=== PATIENT | female | born 1990 | race Caucasian/White ===

== ENCOUNTER 2020-01-24 14:45 | Inpatient (IN) | payer MEDICARE, MEDICAID ==
[2020-01-24 16:48] LABS: Amphetamine Screen,Urine Not Detected (NotDetected); Benzodiazepines Screen,Urine Detected (NotDetected); Cocaine Screen,Urine Not Detected (NotDetected); Opiate Screen,Urine Not Detected (NotDetected); Phencyclidine Screen,Urine Not Detected (NotDetected); Urn Cannabinoid Scrn Not Detected (NotDetected)
[2020-01-24 16:49] LABS: Barbiturate Screen,Urine Not Detected (NotDetected); Methadone Screen, Urine Not Detected (NotDetected); Oxycodone Screen, Urine Not Detected (NotDetected); Tricyclic Antidepressant,Urine Not Detected (NotDetected)
--- NOTE | 2020-01-24 19:04 | ED ---
General Adult HPI - General Chief complaint: Psychiatric Symptoms Stated complaint: Mental Health Time Seen by Provider: 01/24/20 15:29 Source: patient, family Limitations: no limitations - History of Present Illness Initial comments: 29-year-old female patient with past medical history significant for schizophrenia presents to the emergency department today for evaluation of vi sual and auditory hallucinations as well as suicidal ideation. Patient is difficult to provide a timeline however her sister states that she called her this morning and informed her that she was feeling like she wanted to kill herself. Patient states she did get a knife wanted to stab herself. Patient does take medications and is seen by [facility] and [place]. States that she has been taking her medications as prescribed and going to her appointments. Her sister says is been quite some time since she has had symptoms like this. She denies alcohol or drug use. States she is having difficulty sleeping She denies any current physical symptoms or concerns. Patient denies any recent rash, fever, chills, cough, shortness of breath, chest pain, abdominal pain, nausea, vomiting, diarrhea, constipation, back pain, numbness, tingling, dizziness, weakness, hematuria, dysuria, urinary urgency, urinary frequency, headache, visual changes, or any other complaints. - Related Data Home Medications Medication Instructions Recorded Confirmed ARIPiprazole IM SYRINGE [Abilify 400 mg IM Q28D 01/24/20 01/24/20 Maintena Syringe] Cetirizine HCl [Zyrtec] 10 mg PO DAILY 01/24/20 01/24/20 LORazepam [Ativan] 1 mg PO BID 01/24/20 01/24/20 Medroxyprogesterone Acetate 150 mg IM Q84D 01/24/20 01/24/20 [Depo-Provera] Melatonin 5 mg PO HS 01/24/20 01/24/20 Allergies Allergy/AdvReac Type Severity Reaction Status Date / Time lactose AdvReac Nausea & Verified 01/24/20 17:11 Vomiting & Diarrhea Review of Systems ROS Statement: Those systems with pertinent positive or pertinent negative responses have been documented in the HPI. ROS Other: All systems not noted in ROS Statement are negative. Past Medical History Past Medical History: No Reported History History of Any Multi-Drug Resistant Organisms: None Reported Past Surgical History: No Surgical Hx Reported Past Psychological History: No Psychological Hx Reported Past Alcohol Use History: None Reported Past Drug Use History: None Reported - Past Family History Mother Additional Family Medical History / Comment(s): Schizophrenia, bipolar D/O, personality disorder Father Additional Family Medical History / Comment(s): Patient does not have any contact with her father. Brother(s) Additional Family Medical History / Comment(s): Patient has 1 brother and 1 sister with no major medical problems. General Exam Limitations: no limitations General appearance: alert, in no apparent distress, other (This is a well- developed, well-nourished adult female patient in no acute distress. Vital signs upon presentation are temperature 97.8F, pulse 65, respirations 18, blood pressure 123/88, pulse ox 100% on room air.) Eye exam: Present: normal appearance, PERRL, EOMI. Absent: scleral icterus, conjunctival injection, periorbital swelling ENT exam: Present: normal exam, normal oropharynx, mucous membranes moist Cardiovascular Exam: Present: regular rate, normal rhythm, normal heart sounds. Absent: systolic murmur, diastolic murmur, rubs, gallop, clicks GI/Abdominal exam: Present: soft, normal bowel sounds. Absent: distended, tenderness, guarding, rebound, rigid Neurological exam: Present: alert, oriented X3, CN II-XII intact Psychiatric exam: Present: depressed, flat affect, suicidal ideation. Absent: homicidal ideation Skin exam: Present: warm, dry, intact, normal color. Absent: rash Course Vital Signs 01/24/20 14:58 Temperature 97.8 F Pulse Rate 65 Respiratory 18 Rate Blood Pressure 123/88 O2 Sat by Pulse 100 Oximetry Medical Decision Making - Medical Decision Making 29-year-old female patient presents to the emergency department today for evaluation of hallucinations and suicidal ideation. Patient does have history of schizophrenia. She was cleared medically and evaluated by emergency psychiat rito services. It was determined the patient would benefit from inpatient admission, she'll be transferred to the mental health unit. She is agreeable and signs in. - Lab Data Lab Results 01/24/20 Range/Units 16:20 Urine Opiates Screen Not Detected (NotDetected) Ur Oxycodone Screen Not Detected (NotDetected) Urine Methadone Screen Not Detected (NotDetected) Ur Propoxyphene Screen Not Detected (NotDetected) Ur Barbiturates Screen Not Detected (NotDetected) U Tricyclic Antidepress Not Detected (NotDetected) Ur Phencyclidine Scrn Not Detected (NotDetected) Ur Amphetamines Screen Not Detected (NotDetected) U Methamphetamines Scrn Not Detected (NotDetected) U Benzodiazepines Scrn Detected H (NotDetected) Urine Cocaine Screen Not Detected (NotDetected) U Marijuana (THC) Screen Not Detected (NotDetected) Disposition Clinical Impression: Suicidal ideation, Hallucinations Disposition: TRANSFER TO PSYCH HOSP/UNIT Condition: Serious Referrals: Evangelist Martinez MD [Primary Care Provider] - 1-2 days - Out of Hospital Transfer - Req. Specs Out of Hospital Transfer - Requested Specifics: Psychiatric Non-ICU ([facility])
[2020-01-25] MEDS ORDERED: MAG HYDROX/AL HYDROX/SIMETH 30 ML CUP PO PRN (00:41)
[2020-01-25] MEDS ORDERED: LORazepam 1 MG TAB PO PRN (00:41)
[2020-01-25] MEDS ORDERED: MAGNESIUM HYDROXIDE 2,400 MG/10 ML CUP PO PRN (00:41)
[2020-01-25] MEDS ORDERED: ZIPRASIDONE 20 MG VIAL IM PRN (00:41)
[2020-01-25] MEDS ORDERED: LORazepam 2 MG/ML INJ IM PRN (00:43)
[2020-01-25] MEDS: ACETAMINOPHEN TAB 325 MG TAB PO PRN (01:09)
[2020-01-25] MEDS ORDERED: LORATADINE 10 MG TAB PO SCH (09:00)
--- NOTE | 2020-01-25 11:46 | P.HP ---
Psychiatric H&P - . H&P Date: 01/25/20 History & Physical: Allergies Allergy/AdvReac Type Severity Reaction Status Date / Time lactose AdvReac Nausea & Verified 01/25/20 02:38 Vomiting & Diarrhea Vital Signs Temp 99.1 F 01/25/20 00:51 Pulse 59 L 01/25/20 00:51 Resp 15 01/25/20 00:51 BP 147/94 01/25/20 00:51 Pulse Ox 100 01/25/20 00:51 Intake & Output 01/24/20 01/25/20 01/25/20 18:59 06:59 18:59 Weight 74.843 kg 73.709 kg Laboratory Last Values Urine HCG, Qual Not Detected (Not Detectd) 01/24/20 16:20 Urine Opiates Screen Not Detected (NotDetected) 01/24/20 16:20 Ur Oxycodone Screen Not Detected (NotDetected) 01/24/20 16:20 Urine Methadone Screen Not Detected (NotDetected) 01/24/20 16:20 Ur Propoxyphene Screen Not Detected (NotDetected) 01/24/20 16:20 Ur Barbiturates Screen Not Detected (NotDetected) 01/24/20 16:20 U Tricyclic Antidepress Not Detected (NotDetected) 01/24/20 16:20 Ur Phencyclidine Scrn Not Detected (NotDetected) 01/24/20 16:20 Ur Amphetamines Screen Not Detected (NotDetected) 01/24/20 16:20 U Methamphetamines Scrn Not Detected (NotDetected) 01/24/20 16:20 U Benzodiazepines Scrn Detected (NotDetected) H 01/24/20 16:20 Urine Cocaine Screen Not Detected (NotDetected) 01/24/20 16:20 U Marijuana (THC) Screen Not Detected (NotDetected) 01/24/20 16:20 01/25/20 10:22 IDENTIFYING DATA: Patient is a 29-year-old female with a history of schizophrenia who currently lives in a usp collects Social Security has no kids and is unmarried. HPI: Patient presented to the hospital yesterday and was brought in by her [id number] after patient apparently was having auditory hallucinations and suicidal thoughts. Patient has a history of schizophrenia and apparently called her mother according to ER report to tell her about her suicidal thoughts about grabbing a knife and stabbing herself. Patient admitted to ER staff that she has been taking her medications and has had poor sleep. Patient's UDS is positive for benzodiazepines. Patient was seen on the mental health unit laying in her bed and was directable and agreeable to speak to magazine writer in the office. Patient appeared to have a bizarre and intense stare and was concrete and had poverty of content in her speech. She was attending be appropriate and was calm with magazine writer. She denied any irritability however did state that she had been feeling mildly depressed recently. She states that she was hearing more voices which were "negative to me" and the voice yesterday told her to grab a knife and stab herself. She states that the voices have commanded her in the past to kill herself. She claims that the voices have been chronic for her. She states that she called her [id number] to take her to the hospital. She states that she follows up at the [facility] with Dr. Verdugo and has been on an Abilify Maintenna injection. She states that her sleep is poor. Patient denies any current suicidal or homicidal ideations intent or plan. Patient denies any flight of ideas racing thoughts and increased in goal directed behavior. Patient admits to using no recreational drugs or cigarettes or alcohol. PAST PSYCHIATRIC HISTORY: Patient states that she has a history of schizophrenia. Patient was previously on Ativan 1 mg twice a day and Abilify Maintenna monthly injection. Patient was previously hospitalized on the mental health unit in July 2015. In follows up with [facility] in [place], Dr. Verdugo. Patient denies any history of suicide attempts in the past. PMH:denies ALLERGIES: as per EMR CHEMICAL DEPENDENCY HISTORY: as per HPI FAMILY PSYCHIATRIC/SUBSTANCE USE HISTORY: denies SOCIAL HISTORY: Patient was born and raised in [place] however moved to [place]. She currently lives in a usp and collects Social Security has no kids and is unmarried. She claims that she completed high school and worked odd jobs in the past. She is currently unemployed. She denied any legal problems or incarcerations. MENTAL STATUS EXAM: General Appearance: Patient appears to be stated age is alert, directable, and attempts to cooperate. Has a bizarre and intense stare. Patient appears to have poor hygiene and grooming. Behavior: Patient is seated without any agitated behavior. [place] and bizarre. Speech: Patient's speech is fluent and nonpressured. Monotone and concrete. Mood/Affect: Patient reports their mood is depressed, affect is congruent and constricted. Suicidality/Homicidality: Patient denies having any homicidal ideation intent or plan. Denies any suicidal ideations intent or plan Perceptions: Patient denies any visual hallucinations and admits to ongoing auditory hallucinations Though content/process: There is no evidence of any delusional thought content. Patient is concrete and has poverty of content. Memory and concentration: AOX3, grossly intact for the purposes of this session. Can spell "WORLD" backwards Judgment and insight: Limited STRENGTHS/WEAKNESSES: strength is that patient is resilient. Weakness is that patient has poor judgment and is impulsive INTELLECT: Below average IMPRESSIONS: Schizophrenia PLAN: -Patient is admitted under voluntary status to MHU for stabilization of psychiatric symptoms and safety. Patient signed adult voluntary form and medication consent and is placed in patient's chart. -Medications : Will start patient on paliperidone by mouth 3 mg daily for mood stabilization/psychosis with plan to titrate up. Patient claims that she prefe rs to be on a long-acting injection and would likely transition patient onto Invega Sustenna as it appears that Gabriela Huang is not adequately controlling her symptoms. Will increase melatonin to 10 mg nightly for insomnia. -Ativan and Geodon PRN for agitation/aggression -Patient was informed of the risks, benefits and side effects of the medication and patient verbally consented to taking the medications. Patient signed med consent form and was placed in chart. -Internal Medicine consult to perform medical evaluation and physical. -NRT -not needed as patient does not smoke. - on board for discharge planning. Encourage patient to participate in groups to work on coping skills. We'll need to coordinate care with [facility] prior to discharge. Patient will be likely returning back to her usp once she is psychiatrically stable. 01/25/20 11:39
[2020-01-25] MEDS: PALIPERIDONE 3 MG TAB.ER.24 PO SCH (13:29)
--- NOTE | 2020-01-25 13:53 | P.CONS ---
History of Present Illness - Reason for Consult Consult date: 01/25/20 Medical management Requesting physician: Calvin Kelley - Chief Complaint Hallucinations - History of Present Illness Consultation: This is a 29-year-old patient lives in a snf. Patient is brought in by a [id number] after the patient been having auditory hallucinations and suicidal thoughts. Patient has a history of schizophrenia. Apparently patient been havi ng thoughts of driving and-stabbing herself. She has not been sleeping well. During interview she will oftentimes just look at me and answer questions. Voices have been talking to her to harm herself. Her appetite is okay. She has some irregularity of the bowels. She is not able to tell me more about the same just keeps quite. Patient does not use any dictation drugs. Review of systems: GEN.: Tired EYES: None HEENT: None NECK: None RESPIRATORY: None CARDIOVASCULAR: None GASTROINTESTINAL: None GENITOURINARY: None MUSCULOSKELETAL: None LYMPHATICS: None HEMATOLOGICAL: None PSYCHIATRY: As above NEUROLOGICAL: None Past medical history to include: Schizophrenia Social history: Denies use of any dictation drugs, smoking, or alcohol. Lives in a snf. Family history: Reviewed, noncontributory to presentation Physical examination: VITAL SIGNS: 99.1, 59, 15, 1 4794, 100% room air GENERAL: BMI 28.8, sitting up in a chair, depressed appearing. EYES: Pupils equal. Conjunctiva normal. HEENT: External appearance of nose and ears normal, oral cavity grossly normal. NECK: JVD not raised; masses not palpable. HEART: First and second heart sounds are normal; no edema. LUNGS: Respiratory rate normal; clear to auscultation. ABDOMEN: Soft, nontender, liver spleen not palpable, no masses palpable. PSYCH: Patient's awake though, has more of a blank expressionless facel. NEUROLOGICAL: Cranial nerves grossly intact; no facial asymmetry, power and sensation grossly intact. 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 Plan: This point to discontinue patient's Zyrtec that she takes at home. That may be interfering with some of other medications. We will use Metamucil for her bowels. In a high-fiber diet. She'll follow-up with the family doctor per discharge. Thank you Dr. Kelley Past Medical History Past Medical History: No Reported History History of Any Multi-Drug Resistant Organisms: None Reported Past Surgical History: No Surgical Hx Reported Smoking Status: Never smoker - Past Family History Mother Additional Family Medical History / Comment(s): Schizophrenia, bipolar D/O, personality disorder Father Additional Family Medical History / Comment(s): Patient does not have any contact with her father. Brother(s) Additional Family Medical History / Comment(s): Patient has 1 brother and 1 sister with no major medical problems. Medications and Allergies Home Medications Medication Instructions Recorded Confirmed Type ARIPiprazole IM SYRINGE [Abilify 400 mg IM Q28D 01/24/20 01/25/20 History Maintena Syringe] Cetirizine HCl [Zyrtec] 10 mg PO DAILY 01/24/20 01/25/20 History LORazepam [Ativan] 1 mg PO BID 01/24/20 01/25/20 History Medroxyprogesterone Acetate 150 mg IM Q84D 01/24/20 01/25/20 History [Depo-Provera] Melatonin 5 mg PO HS 01/24/20 01/25/20 History Allergies Allergy/AdvReac Type Severity Reaction Status Date / Time lactose AdvReac Nausea & Verified 01/25/20 02:38 Vomiting & Diarrhea Physical Exam Vitals: Vital Signs Temp Pulse Pulse Resp BP BP Pulse Ox 01/25/20 00:51 99.1 F 59 L 15 147/94 100 01/24/20 14:58 97.8 F 65 18 123/88 100 Intake and Output 01/24/20 01/25/20 01/25/20 22:59 06:59 14:59 Other: Weight 73.709 kg Results Labs: Abnormal Lab Results - Last 24 Hours (Table) 01/24/20 Range/Units 16:20 U Benzodiazepines Scrn Detected H (NotDetected)
[2020-01-25] MEDS: PSYLLIUM HUSK 100% 6 GM PACKET PO SCH (14:25)
[2020-01-25] MEDS ORDERED: MELATONIN 5 MG TABLET PO SCH (21:00)
[2020-01-25] MEDS: MELATONIN 5 MG TABLET PO SCH (22:17)
[2020-01-26] MEDS: PSYLLIUM HUSK 100% 6 GM PACKET PO SCH (08:21)
[2020-01-26] MEDS: PALIPERIDONE 3 MG TAB.ER.24 PO SCH ×2 (08:21→21:23)
[2020-01-26 09:27] LABS: Basophils # (A) 0.1 k/uL (0-0.2); Basophils % (A) 1 %; Eosinophils # (A) 0.1 k/uL (0-0.7); Eosinophils % (A) 1 %; HCT 46.9 % (34.0-46.0); HGB 14.7 gm/dL (11.4-16.0); Lymphocytes # (A) 4.3 k/uL (1.0-4.8); Lymphocytes % (A) 32 %; MCH 27.7 pg (25.0-35.0); MCHC 31.3 g/dL (31.0-37.0); MCV 88.5 fL (80.0-100.0); Mean Platelet Volume 7.2; Monocytes # (A) 0.6 k/uL (0-1.0); Monocytes % (A) 5 %; Neutrophils # (A) 7.9 k/uL (1.3-7.7); Neutrophils % (A) 60 %; Platelet Count 304 k/uL (150-450); RDW 13.4 % (11.5-15.5); WBC 13.1 k/uL (3.8-10.6)
[2020-01-26 09:46] LABS: Cholesterol 168 mg/dL (<200); HDL Cholesterol 35 mg/dL (40-60); LDL Cholesterol,Calculated 105 mg/dL (0-99); Triglycerides 139 mg/dL (<150)
[2020-01-26 09:58] LABS: ALT 20 U/L (4-34); AST 23 U/L (14-36); African American GFR (CKD) >90 (>60 ml/min/1.73 sqM); Albumin 4.7 g/dL (3.5-5.0); Alkaline Phosphatase 93 U/L (38-126); Anion Gap 8 mmol/L; Blood Urea Nitrogen 12 mg/dL (7-17); Calcium 9.9 mg/dL (8.4-10.2); Carbon Dioxide 26 mmol/L (22-30); Chloride 106 mmol/L (98-107); Glucose 90 mg/dL (74-99); Non-African American GFR(CKD) >90 (>60 ml/min/1.73 sqM); Potassium 4.4 mmol/L (3.5-5.1); Sodium 140 mmol/L (137-145); Total Bilirubin 0.8 mg/dL (0.2-1.3); Total Protein 7.5 g/dL (6.3-8.2)
--- NOTE | 2020-01-26 10:18 | P.PN ---
Progress Note - Text Progress Note Date: 01/26/20 Interval History: Patient was seen in her room today and was directable and agreeable to speak w ith advertising copywriter in the office. Patient continues to appear to be concrete and has an intense stare. She was attempting to cooperate and was calm during the interview. She states that she is feeling a bit better today and claims that she was able to get better sleep last night "I slept like a baby". She states that she did go to 1 group yesterday and spoke about rolling a dice and answering questions. She states that the voices have been improving and "they're not negative anymore" however apparently are still present. She claims that she her mood has been gradually improving and denies any anxiety today. She states that she will be calling her family today in the afternoon. At this time patient denies any suicidal or homical ideations, intent or plan. Patient denies visual hallucinations and denies any paranoia or delusions. Patient denies any side effects from the medications and has been compliant with meds. Mental Status Exam: General Appearance: Patient appears to be stated age is alert, directable, and attempts to cooperate. Has an intense stare. Patient appears to have improving hygiene and grooming. Behavior: Patient is seated without any agitated behavior. [place] Speech: Patient's speech is fluent and nonpressured. Monotone Mood/Affect: Patient reports their mood is "getting better", affect is congruent and constricted. Suicidality/Homicidality: Patient denies having any homicidal ideation intent or plan. Denies any suicidal ideations intent or plan Perceptions: Patient denies any visual hallucinations and admits to ongoing auditory hallucinations which have been improving in intensity. Though content/process: There is no evidence of any delusional thought content. Patient is concrete and has poverty of content. Memory and concentration: AOX3, grossly intact for the purposes of this session. Judgment and insight: Limited, improving mildly Assessment Schizophrenia Plan: -Patient continues to meet criteria for inpatient psychiatric admission for symptom stabilization and safety. Patient has signed adult voluntary form and medication consent and was placed in patient's chart. -Medications: We'll increase paliperidone to 3 mg twice a day for mood stabilization/psychosis. Plan will be to transition her onto long-acting injection Invega Sustenna once she is stabilized. We will continue with melatonin 10 mg nightly for insomnia. -When necessary Ativan and Geodon for agitation/aggression. -NRT -not needed as patient does not smoke. -SW on board for discharge planning. Encouraged the patient to participate in milieu. We'll need to coordinate care with [facility] prior to discharge. Patient will be likely returning back to her halfway once she is psychiatrically stable.
[2020-01-26] MEDS: ACETAMINOPHEN TAB 325 MG TAB PO PRN (13:51)
[2020-01-26 17:07] LABS: Hemoglobin A1C 5.4 % (4.0-6.0)
[2020-01-26] MEDS: MELATONIN 5 MG TABLET PO SCH (21:24)
[2020-01-27] MEDS: PSYLLIUM HUSK 100% 6 GM PACKET PO SCH (08:35)
[2020-01-27] MEDS: PALIPERIDONE 3 MG TAB.ER.24 PO SCH (08:35)
[2020-01-27] MEDS ORDERED: BENZTROPINE MESYLATE 0.5 MG TAB PO SCH (09:15)
[2020-01-27] MEDS: BENZTROPINE MESYLATE 1 MG TAB PO SCH ×2 (09:15→20:33)
--- NOTE | 2020-01-27 09:36 | P.PN ---
Progress Note - Text Progress Note Date: 01/27/20 Interval History: Patient was seen in her room today and was directable and agreeable to speak w ith contract writer in the office. Patient appeared to be having difficulties moving her eyes this morning and states that "sometimes they locked" and states that her mood is "fine" today. She denied any depression. She claimed that she feels she is doing well on the medications. Patient continues to appear to be concrete and has an intense stare. She claims that she was hearing voices earlier today calling her a "bitch" and states that "I want to slap them". She states that she did not sleep as good as the day before however did manage to get some rest at night. She claims that she did not go to many groups yesterday and has been in her room for most of the time. She claims that she her mood has been gradually improving and denies any anxiety today. She states that she will be calling her family today in the afternoon. At this time patient denies any suicidal or homical ideations, intent or plan. Patient denies visual hallucinations and denies any paranoia or delusions. Patient denies any side effects from the medications and has been compliant with meds. Mental Status Exam: General Appearance: Patient appears to be stated age is alert, directable, and attempts to cooperate. Has an intense stare. Patient appears to have improving hygiene and grooming. Behavior: Patient is seated without any agitated behavior. [place] Speech: Patient's speech is fluent and nonpressured. Monotone Mood/Affect: Patient reports their mood is "ok", affect is congruent and constricted. Suicidality/Homicidality: Patient denies having any homicidal ideation intent or plan. Denies any suicidal ideations intent or plan Perceptions: Patient denies any visual hallucinations and admits to ongoing auditory hallucinations which are calling her a "bitch" Though content/process: There is no evidence of any delusional thought content. Patient is concrete and has poverty of content. Memory and concentration: AOX3, grossly intact for the purposes of this session. Judgment and insight: Limited, improving mildly Assessment Schizophrenia Plan: -Patient continues to meet criteria for inpatient psychiatric admission for symptom stabilization and safety. Patient has signed adult voluntary form and medication consent and was placed in patient's chart. -Medications: We'll decrease paliperidone to 3 mg daily for mood stabilization/psychosis. Plan will be to transition her onto long-acting injection Invega Sustenna once she is stabilized. We will continue with melatonin 10 mg nightly for insomnia. Suspected possible EPS reaction from paliperidone, therefore added Cogentin 1 mg twice a day with 1 dose now and will check in with patient in one hour to see if there is any improvement. -When necessary Ativan and Geodon for agitation/aggression. -NRT -not needed as patient does not smoke. -SW on board for discharge planning. Encouraged the patient to participate in milieu. We'll need to coordinate care with [facility] prior to discharge. Patient will be likely returning back to her custodial once she is psychiatrically stable.
[2020-01-27] MEDS: MELATONIN 5 MG TABLET PO SCH (20:32)
[2020-01-28] MEDS: PSYLLIUM HUSK 100% 6 GM PACKET PO SCH (08:33)
[2020-01-28] MEDS: BENZTROPINE MESYLATE 1 MG TAB PO SCH ×2 (08:35→21:04)
[2020-01-28] MEDS ORDERED: PALIPERIDONE 3 MG TAB.ER.24 PO SCH (09:00)
[2020-01-28] MEDS ORDERED: PALIPERIDONE 3 MG TAB.ER.24 PO STA (11:24)
--- NOTE | 2020-01-28 11:40 | P.PN ---
Progress Note - Text Progress Note Date: 01/28/20 Interval History: Patient was seen in her room today and she was sitting on the edge of the bed quietly and was directable and agreeable to speak with conventional underwriter in the office. Patient states that she is feeling mildly better today and claims that she feels the medications of been helping her. She denied any overnight complaints and states that her "eye twitching" has resolved with the Cogentin. She claimed that her mood is "not the same" and spoke about a "negative voice" that is telling her "some bad things and some good things". She claimed that she feels she is doing well on the medications and is agreeable to have the medication increased at this time. Patient continues to appear to be concrete and has an intense stare. Patient states that she has been showering eating her meals and will attempt to go to groups today. She claims that she her mood has been gradually improving and denies any anxiety today. At this time patient denies any suicidal or homical ideations, intent or plan. Patient denies visual hallucinations and denies any paranoia or delusions. Patient denies any side effects from the medications and has been compliant with meds. Mental Status Exam: General Appearance: Patient appears to be stated age is alert, directable, and attempts to cooperate. Has an intense stare. Patient appears to have improving hygiene and grooming. Behavior: Patient is seated without any agitated behavior. [place] Speech: Patient's speech is fluent and nonpressured. Monotone Mood/Affect: Patient reports their mood is "not the same", affect is congruent and blunted. Suicidality/Homicidality: Patient denies having any homicidal ideation intent or plan. Denies any suicidal ideations intent or plan Perceptions: Patient denies any visual hallucinations and admits to ongoing auditory hallucinations which are continuing to be negative in nature. Though content/process: There is no evidence of any delusional thought content. Patient is concrete and has poverty of content. Memory and concentration: AOX3, grossly intact for the purposes of this session. Judgment and insight: Limited, improving mildly Assessment Schizophrenia Plan: -Patient continues to meet criteria for inpatient psychiatric admission for symptom stabilization and safety. Patient has signed adult voluntary form and medication consent and was placed in patient's chart. -Medications: We'll increase paliperidone to 6 mg daily for mood stabilization/psychosis. Plan will be to transition her onto long-acting injection Invega Sustenna once she is stabilized. We will continue with melatonin 10 mg nightly for insomnia. Suspected possible EPS reaction from paliperidone, continue with Cogentin 1 mg twice a day. -When necessary Ativan and Geodon for agitation/aggression. -NRT -not needed as patient does not smoke. -SW on board for discharge planning. Encouraged the patient to participate in milieu. We'll need to coordinate care with [facility] prior to discharge. Patient will be likely returning back to her [facility] once she is psychiatrically stable. Likely discharge next week.
[2020-01-28] MEDS: MELATONIN 5 MG TABLET PO SCH (21:04)
[2020-01-29] MEDS: BENZTROPINE MESYLATE 1 MG TAB PO SCH ×2 (08:25→20:51)
[2020-01-29] MEDS: PALIPERIDONE 6 MG TAB.ER.24 PO SCH (08:25)
[2020-01-29] MEDS: PSYLLIUM HUSK 100% 6 GM PACKET PO SCH (08:26)
[2020-01-29] MEDS: MELATONIN 5 MG TABLET PO SCH (20:50)
--- NOTE | 2020-01-29 21:26 | P.PN ---
Progress Note - Text Progress Note Date: 01/29/20 Subjective: Patient was seen today as a cross coverage for Dr. Kelley. The patient was evaluated, chart reviewed, case discussed with the treatment team. Patient reports fair sleep, and appetite was reported as "good". Patient has not been going to groups and other unit activities. The patient is compliant with her medications and denies any adverse reactions. She minimizes depression today and denies felling hopeless or suicidal. Pt presents internally preoccupied with flat affect. She reports AH but she is not responding to the voices. Denies any manic symptoms. No physical complaint and reports medications helped her symptoms. Objective: Vitals has been reviewed. Mental status examination; Appearance: The patient appears stated age, adequately groomed and dressed, no specific features. Gait/posture: Normal gait, Normal arm swinging: No abnormal movements. Attitude and behavior: not engaged, not fully cooperative, poor eye contact. Motor activity: decreased psychomotor activity Speech: Slow rate, soft volume. Mood: indifferent Affect: Flat Thought form: Delayed, decreased thoughts. Thought content: Internally preoccupied, denies suicidal thoughts, denies homicidal thoughts, denies intentions or plans. Perception: Reports infrequent auditory but denies visual hallucinations Attention: No impairment. Orientation: Patient patient was fully oriented to time place person and situation. Insight: Patient has fair insight about her psychiatric disorder. Judgment: Patient has fair judgment about her psychiatric treatment. Assessment: Schizophrenia Plan: Continue inpatient level of care due to need for further stabilization Precautions: Continue 15 minutes check for safety. Consider medical consultation if any acute medical issues arise. Provide the patient individual, group therapy, substance use disorder counseling to give better insight and learn coping skills. Medications: Continue Invega for psychotic symptoms, and Cogentin to prevent EPS. Continue PRN psych medications Continue non-psychiatric medications for management of co-morbid medical problems Discharge patient to OUTPATIENT services upon a stabilization
[2020-01-30] MEDS: PALIPERIDONE 6 MG TAB.ER.24 PO SCH (08:28)
[2020-01-30] MEDS: BENZTROPINE MESYLATE 1 MG TAB PO SCH ×2 (08:28→20:43)
[2020-01-30] MEDS: PSYLLIUM HUSK 100% 6 GM PACKET PO SCH (08:28)
--- NOTE | 2020-01-30 12:24 | P.PN ---
Progress Note - Text Progress Note Date: 01/30/20 Subjective: Patient was seen today as a cross coverage for Dr. Kelley. The patient was evaluated, chart reviewed, case discussed with the treatment team. Patient reports continued to have good sleep and appetite, but presents with flat affect. Patient was more interacting today with others and she was seen attending groups. She denies depression, hopelessness, or suicidal. Reports continued to have auditory hallucinations but telling her to go to groups. She denies any commanding hallucinations to hurt herself or others. No manic symptoms reported or noticed. She denies any physical complaint, and continue to take her psychiatric medications without side effects. Objective: Vitals has been reviewed. Mental status examination; Appearance: The patient appears stated age, adequately groomed and dressed, no specific features. Gait/posture: Normal gait, Normal arm swinging: No abnormal movements. Attitude and behavior: not engaged, not fully cooperative, poor eye contact. Motor activity: decreased psychomotor activity Speech: Slow rate, soft volume. Mood: indifferent Affect: Flat Thought form: Delayed, decreased thoughts. Thought content: Internally preoccupied, denies suicidal thoughts, denies homicidal thoughts, denies intentions or plans. Perception: Reports infrequent auditory but denies visual hallucinations Attention: No impairment. Orientation: Patient patient was fully oriented to time place person and situation. Insight: Patient has fair insight about her psychiatric disorder. Judgment: Patient has fair judgment about her psychiatric treatment. Assessment: Schizophrenia Plan: Continue inpatient level of care due to need for further stabilization Precautions: Continue 15 minutes check for safety. Consider medical consultation if any acute medical issues arise. Provide the patient individual, group therapy, substance use disorder counseling to give better insight and learn coping skills. Medications: Continue Invega for psychotic symptoms, and Cogentin to prevent EPS. Continue PRN psych medications Continue non-psychiatric medications for management of co-morbid medical problems Discharge patient to OUTPATIENT services upon a stabilization
[2020-01-30] MEDS: MELATONIN 5 MG TABLET PO SCH (20:42)
[2020-01-31] MEDS: BENZTROPINE MESYLATE 1 MG TAB PO SCH ×2 (08:59→20:35)
[2020-01-31] MEDS: PALIPERIDONE 6 MG TAB.ER.24 PO SCH (08:59)
[2020-01-31] MEDS: PSYLLIUM HUSK 100% 6 GM PACKET PO SCH (08:59)
[2020-01-31] MEDS ORDERED: PALIPERIDONE 3 MG TAB.ER.24 PO STA (09:47)
--- NOTE | 2020-01-31 09:52 | P.PN ---
Progress Note - Text Progress Note Date: 01/31/20 Interval History: Patient was seen sitting in on group today and was directable and agreeable to speak with chief underwriter in the office. Patient appeared to be more directable in conversation however continues to be concrete and have poverty of content/speech. She initially offered no overnight complaints and states that she has been sleeping well. She claims that she has been going to some groups however claims that she only "listens to them" and does not speak. She claims that her mood is "fine" and denies any anxiety today. She denied any EPS symptoms at this time. \\She continues to state that she is hearing a negative voice calling her a "bitch" and she states that it is distressing to her. She claimed that she feels she is doing well on the medications and is agreeable to have the medication increased at this time. At this time patient denies any suicidal or homical ideations, intent or plan. Patient denies visual hallucinations and denies any paranoia or delusions. Patient denies any side effects from the medications and has been compliant with meds. Mental Status Exam: General Appearance: Patient appears to be stated age is alert, directable, and attempts to cooperate. Has an intense stare. Patient appears to have improving hygiene and grooming. Behavior: Patient is seated without any agitated behavior. [place] Speech: Patient's speech is fluent and nonpressured. Monotone Mood/Affect: Patient reports their mood is "fine", affect is congruent and blunted. Suicidality/Homicidality: Patient denies having any homicidal ideation intent or plan. Denies any suicidal ideations intent or plan Perceptions: Patient denies any visual hallucinations and admits to ongoing auditory hallucinations which are continuing to be negative in nature. Though content/process: There is no evidence of any delusional thought content. Patient is concrete and has poverty of content. Memory and concentration: AOX3, grossly intact for the purposes of this session. Judgment and insight: Limited, improving mildly Assessment Schizophrenia Plan: -Patient continues to meet criteria for inpatient psychiatric admission for symptom stabilization and safety. Patient has signed adult voluntary form and medication consent and was placed in patient's chart. -Medications: We'll increase paliperidone to 9 mg daily for mood stabilization/psychosis. Plan will be to transition her onto long-acting injection Invega Sustenna once she is stabilized. We will continue with melatonin 10 mg nightly for insomnia. Continue with Cogentin 1 mg twice a day. -When necessary Ativan and Geodon for agitation/aggression. -NRT -not needed as patient does not smoke. -SW on board for discharge planning. Encouraged the patient to participate in milieu. We'll need to coordinate care with [facility] prior to discharge. Patient will be likely returning back to her halfway once she is psy chiatrically stable. Likely discharge this week, possibly in 2-3 days.
[2020-01-31] MEDS: MELATONIN 5 MG TABLET PO SCH (20:35)
[2020-02-01] MEDS: PALIPERIDONE 3 MG TAB.ER.24 PO SCH (09:02)
[2020-02-01] MEDS: BENZTROPINE MESYLATE 1 MG TAB PO SCH ×2 (09:02→20:14)
[2020-02-01] MEDS: PSYLLIUM HUSK 100% 6 GM PACKET PO SCH (09:03)
--- NOTE | 2020-02-01 09:08 | P.PN ---
Progress Note - Text Progress Note Date: 02/01/20 Interval History: Patient was seen laying in her bed this morning and was directable and agreeable to speak with radio news writer in the office. Patient appeared to be more directable in conversation today. She offered no overnight complaints and claims that she was able to sleep well. She states that she feels that medication is helping her with the voices. She continues to be concrete and have poverty of content/speech. She claims that she has been going to some groups and states that she will be calling her [id number] today Aleta over the phone to update her on her progress. She claims that her mood is "fine" and denies any anxiety today. She denied any EPS symptoms at this time. She continues to state that she is hearing a voice however feels that it is less distressing to her and states that "it saying play with me". At this time patient denies any suicidal or homical ideations, intent or plan. Patient denies visual hallucinations and denies any paranoia or delusions. Patient denies any side effects from the medications and has been compliant with meds. Mental Status Exam: General Appearance: Patient appears to be stated age is alert, directable, and attempts to cooperate. Has an intense stare. Patient appears to have improving hygiene and grooming. Behavior: Patient is seated without any agitated behavior. [place] Speech: Patient's speech is fluent and nonpressured. Monotone Mood/Affect: Patient reports their mood is "ok", affect is congruent and blunted. Suicidality/Homicidality: Patient denies having any homicidal ideation intent or plan. Denies any suicidal ideations intent or plan Perceptions: Patient denies any visual hallucinations and admits to ongoing auditory hallucinations which have been chronic however are non-distressing to her at this point. Though content/process: There is no evidence of any delusional thought content. Patient is concrete and has poverty of content. Memory and concentration: AOX3, grossly intact for the purposes of this session. Judgment and insight: Limited, improving mildly Assessment Schizophrenia Plan: -Patient continues to meet criteria for inpatient psychiatric admission for symptom stabilization and safety. Patient has signed adult voluntary form and medication consent and was placed in patient's chart. -Medications: We'll continue with paliperidone to 9 mg daily for mood stabilization/psychosis. Plan will be to transition her onto long-acting injection Invega Sustenna once she is stabilized. We will continue with melatonin 10 mg nightly for insomnia. Continue with Cogentin 1 mg twice a day. -When necessary Ativan and Geodon for agitation/aggression. -NRT -not needed as patient does not smoke. -SW on board for discharge planning. Encouraged the patient to participate in milieu. We'll need to coordinate care with [facility] prior to discharge. Patient will be likely returning back to her halfway once she is psychiatrically stable. Likely discharge this week, possibly in 1-2 days.
[2020-02-01 11:19] VITALS: BMI 28.8
[2020-02-01] MEDS: MELATONIN 5 MG TABLET PO SCH (20:14)
[2020-02-02] MEDS: BENZTROPINE MESYLATE 1 MG TAB PO SCH (08:32)
[2020-02-02] MEDS: PSYLLIUM HUSK 100% 6 GM PACKET PO SCH (08:33)
[2020-02-02] MEDS: PALIPERIDONE 3 MG TAB.ER.24 PO SCH (08:33)
[2020-02-02] MEDS ORDERED: PALIPERIDONE IM 234 MG/1.5 ML SYG IM STA (10:11)
--- NOTE | 2020-02-02 11:26 | P.PN ---
Progress Note - Text Progress Note Date: 02/02/20 Interval History: Patient was seen just prior to group starting this morning and was directable and agreeable to speak with job specification writer in the office. Patient appeared to be more directable in conversation today. She offered no overnight complaints. She claims that she is taking her medications regularly and finding that is helping her. She states that she was able to sleep well last night. She states that she feels that medication is helping her with the voices and claims that the voice has been more positive lately and told her to "go to group this morning". She did complain of some "tiredness" throughout the day however states that she is getting used to it. She continues to be concrete and have poverty of content/speech. She claims that she has been going to some groups. She claims that her mood is "fine" and denies any anxiety today. She denied any EPS symptoms at this time. At this time patient denies any suicidal or homical ideations, intent or plan. Patient denies visual hallucinations and denies any paranoia or delusions. Patient denies any side effects from the medications and has been compliant with meds. Mental Status Exam: General Appearance: Patient appears to be stated age is alert, directable, and attempts to cooperate. Has an intense stare. Patient appears to have improving hygiene and grooming. Behavior: Patient is seated without any agitated behavior. [place] Speech: Patient's speech is fluent and nonpressured. Monotone Mood/Affect: Patient reports their mood is "ok", affect is congruent and blunted. Suicidality/Homicidality: Patient denies having any homicidal ideation intent or plan. Denies any suicidal ideations intent or plan Perceptions: Patient denies any visual hallucinations and admits to ongoing auditory hallucinations which have been chronic however are non-distressing to her. Though content/process: There is no evidence of any delusional thought content. Patient is concrete and has poverty of content. Memory and concentration: AOX3, grossly intact for the purposes of this session. Judgment and insight: Limited, improving mildly Assessment Schizophrenia Plan: -Patient continues to meet criteria for inpatient psychiatric admission for symptom stabilization and safety. Patient has signed adult voluntary form and medication consent and was placed in patient's chart. -Medications: We'll decrease paliperidone to 6 mg daily for mood stabilization/psychosis. Patient is agreeable to take loading dose of Invega Sustenna today. Patient's maintenance dose will be 156 mg monthly. We will continue with melatonin 10 mg nightly for insomnia. Decreased Cogentin 0.5 mg twice a day for EPS prophylaxis. -When necessary Ativan and Geodon for agitation/aggression. -NRT -not needed as patient does not smoke. -SW on board for discharge planning. Encouraged the patient to participate in milieu. We'll need to coordinate care with [facility] prior to discharge. Patient will be likely returning back to her long-term once she is psychiatrically stable. Likely discharge Friday.
[2020-02-02] MEDS: MELATONIN 5 MG TABLET PO SCH (21:08)
[2020-02-02] MEDS: BENZTROPINE MESYLATE 0.5 MG TAB PO SCH (21:08)
[2020-02-03] MEDS: PSYLLIUM HUSK 100% 6 GM PACKET PO SCH (08:25)
[2020-02-03] MEDS: BENZTROPINE MESYLATE 0.5 MG TAB PO SCH ×2 (08:25→21:19)
[2020-02-03] MEDS ORDERED: PALIPERIDONE 6 MG TAB.ER.24 PO SCH (09:00)
--- NOTE | 2020-02-03 10:21 | P.PN ---
Progress Note - Text Progress Note Date: 02/03/20 Interval History: Patient was seen after taking her medications this morning and was directable and agreeable to speak with appeals writer in the office. Patient appeared to be more directable in conversation today and was appropriate. She offered no overnight complaints and states that she is sleeping well. She claims that she feels less tired today and feels motivated for discharge. She claims that she is taking her medications regularly and finding that is helping her with her symptoms. She states that she was able to sleep well last night. She claims that she did hear the voice earlier today which has been saying "positive things to me" and told her to "go to group today". She continues to be concrete and have poverty of content/speech. She claims that she has been going to some groups and states that she is enjoying listening to other people. She claims that her mood is "ok" and denies any anxiety today. She denied any EPS symptoms at this time. At this time patient denies any suicidal or homical ideations, intent or plan. Patient denies visual hallucinations and denies any paranoia or delusions. Patient denies any side effects from the medications and has been compliant with meds. Mental Status Exam: General Appearance: Patient appears to be stated age is alert, directable, and attempts to cooperate. Has an intense stare. Patient appears to have improving hygiene and grooming. Behavior: Patient is seated without any agitated behavior. [place] Speech: Patient's speech is fluent and nonpressured. Monotone Mood/Affect: Patient reports their mood is "ok", affect is congruent and blunted. Suicidality/Homicidality: Patient denies having any homicidal ideation intent or plan. Denies any suicidal ideations intent or plan Perceptions: Patient denies any visual hallucinations and admits to ongoing auditory hallucinations which have been chronic however and have been positive in nature. Though content/process: There is no evidence of any delusional thought content. Patient is concrete and has poverty of content. Memory and concentration: AOX3, grossly intact for the purposes of this session. Judgment and insight: Chronically Limited, improving mildly Assessment Schizophrenia Plan: -Patient continues to meet criteria for inpatient psychiatric admission for symptom stabilization and safety. Patient has signed adult voluntary form and medication consent and was placed in patient's chart. -Medications: We'll decrease paliperidone to 3 mg daily for mood stabilization/psychosis. Patient received Invega Sustenna loading dose on 02/02/2020 and will be due for her next injection of 156 mg on 02/08/2020. Patient's maintenance dose will be 156 mg monthly. We will continue with melatonin 10 mg nightly for insomnia. Continue with Cogentin 0.5 mg twice a day for EPS prophylaxis. -When necessary Ativan and Geodon for agitation/aggression. -NRT -not needed as patient does not smoke. -SW on board for discharge planning. Encouraged the patient to participate in milieu. We'll need to coordinate care with [facility] prior to discharge. Patient will be likely returning back to her assisted once she is psychiatrically stable. Likely discharge tomorrow
[2020-02-03] MEDS: MELATONIN 5 MG TABLET PO SCH (21:19)
[2020-02-04] MEDS: PSYLLIUM HUSK 100% 6 GM PACKET PO SCH (08:20)
[2020-02-04] MEDS: BENZTROPINE MESYLATE 0.5 MG TAB PO SCH (08:21)
[2020-02-04] MEDS ORDERED: PALIPERIDONE 3 MG TAB.ER.24 PO SCH (09:00)
--- NOTE | 2020-02-04 09:42 | P.DS ---
Providers Date of admission: 01/24/20 22:50 Expected date of discharge: 02/04/20 Attending physician: Calvin Kelley MD Consults: 01/25/20 00:41 Consult Physician Routine Consulting Provider: Carlos Lynn Consult Reason/Comments: H&P and medical Do you want consulting provider notified?: Yes Primary care physician: Evangelist Martinez - Discharge Diagnosis(es) (1) Schizophrenia Current Visit: Yes Status: Acute Priority: High Hospital Course: Admission HPI: Patient is a 29-year-old female with a history of schizophrenia who currently lives in a long term collects Social Security has no kids and is unmarried. Patient presented to the hospital yesterday and was brought in by her [id number] after patient apparently was having auditory hallucinations and suicidal thoughts. Patient has a history of schizophrenia and apparently called her mother according to ER report to tell her about her suicidal thoughts about grabbing a knife and stabbing herself. Patient admitted to ER staff that she has been taking her medications and has had poor sleep. Patient's UDS is positive for benzodiazepines. Patient was seen on the mental health unit laying in her bed and was directable and agreeable to speak to junior underwriter in the office. Patient appeared to have a bizarre and intense stare and was concrete and had poverty of content in her speech. She was attending be appropriate and was calm with junior underwriter. She denied any irritability however did state that she had been feeling mildly depressed recently. She states that she was hearing more voices which were "negative to me" and the voice yesterday told her to grab a knife and stab herself. She states that the voices have commanded her in the past to kill herself. She claims that the voices have been chronic for her. She states that she called her [id number] to take her to the hospital. She states that she follows up at the [facility] with Dr. Verdugo and has been on an Abilify Maintenna injection. She states that her sleep is poor. Patient denies any current suicidal or homicidal ideations intent or plan. Patient denies any flight of ideas racing thoughts and increased in goal directed behavior. Patient admits to using no recreational drugs or cigarettes or alcohol. Hospital course: Upon admission to the unit patient was initially bizarre, disorganized and psychotic. Patient was however directable and agreeable to commence treatment. Patient got along well with other patients on the unit and followed unit protocol. Patient was compliant with the medications throughout hospital course. Patient did encounter extraparametal symptoms as side effects to the antipsychotic medication and required Cogentin to help with these symptoms. Patient was started on paliperidone and titrated up to a dose of 9 mg daily for mood stabilization/psychosis. Patient was eventually transitioned onto Invega Sustenna and given a loading dose of 20 and 34 mg IM on 02/02/2020 and will be due for her next IM dose of 156 mg on 02/08/2020 and will be followed by her monthly maintenance dose of 156 mg on 02/28/2020. Patient was also started on Cogentin 0.5 mg twice a day for EPS prophylaxis and melatonin titrated up to dose of 10 mg nightly for insomnia. Patient spoke of her stressors and engaged in therapy both group and individual. Patient was also seen by medical team for history and physical exam. Throughout the course of the hospitalization patient gradually improved with regards to mood and suicidal thoughts, psychosis/hallucinations, sleep and became more future oriented with improved insight and judgment and return back to her baseline of functioning. On the day of discharge patient denied any suicidal or homicidal ideations intent or plan denied any visual hallucinations. She does have chronic auditory hallucinations which returned back to their baseline and were positive and non-distressing in nature. Patient endorsed wanting to live for her health and her family. The patient denied any access to guns or weapons. Patient denied any paranoia and did not endorse any delusions. Patient does not have a significant history of substance abuse however was counseled on abstaining from all substances including alcohol and marijuana. Patient was also counseled on the medications and need for regular compliance and was encouraged to follow-up with their outpatient appointment for mental health and also for primary care. Prior to discharge a family meeting will be arranged by social services technician to answer any questions and ensure safety upon discharge. Mental status exam: General Appearance: Patient appears to be stated age is alert, pleasant, and attempts to be cooperative. Patient is in no acute distress and has fair hygiene and grooming Behavior: Patient is calmly seated without any agitated behavior. Speech: Patient's speech is fluent and nonpressured. [place]. Mood/Affect: Patient reports their mood is "better", affect is congruent and constricted. Suicidality/Homicidality: Patient denies having any suicidal or homicidal ideation intent or plan. Perceptions: Patient denies any auditory or visual hallucinations. Though content/process: There is no evidence of any delusional thought content and thought process is linear and goal-directed. Memory and concentration: AOX3, grossly intact for the purposes of this session. Can spell "WORLD" backwards correctly. Judgment and insight: Chronically limited however has Improved with guarded prognosis Impression: Schizophrenia Plan: -Continue with discharge today as patient has improved and stabilized psychiatrically and is not currently an imminent threat to herself and/or others. -Continue medications: Patient was titrated off of paliperidone by mouth prior to discharge. She was transitioned onto Invega Sustenna and given a loading dose of 20 and 34 mg IM on 02/02/2020 and will be due for her next IM dose of 156 mg on 02/08/2020 and will be followed by her monthly maintenance dose of 156 mg on 02/28/2020. Can continue with Cogentin 0.5 mg twice a day for EPS prophylaxis and melatonin 10 mg nightly for insomnia. -Patient was counseled on the need for medication compliance and appropriate follow-up at mental health and also primary care for medical issues. Patient verbalized understanding and agreed. -Social work to arrange for and conduct family meeting to ensure safety upon discharge and answer any questions/concerns. medical office worker arranged for patient to be picked up and will be discharged back to her previous long term. Social work also to arrange for patients follow up appointments with [facility] for psychiatric care along with follow up with primary care provider. -Patient counseled on abstaining from recreational drugs and marijuana and alcohol. Was informed/educated on the adverse effects on their physical and mental health. Patient verbally agreed and understood. -Patient was instructed to return to the hospital or seek immediate medical care if their psychiatric or medical symptoms do worsen or reoccur. Allergies Allergy/AdvReac Type Severity Reaction Status Date / Time lactose AdvReac Mild Nausea & Verified 01/27/20 14:59 Vomiting & Diarrhea Laboratory Results WBC 13.1 k/uL (3.8-10.6) H 01/26/20 08:31 RBC 5.30 m/uL (3.80-5.40) 01/26/20 08:31 Hgb 14.7 gm/dL (11.4-16.0) 01/26/20 08:31 Hct 46.9 % (34.0-46.0) H 01/26/20 08:31 MCV 88.5 fL (80.0-100.0) 01/26/20 08:31 MCH 27.7 pg (25.0-35.0) 01/26/20 08:31 MCHC 31.3 g/dL (31.0-37.0) 01/26/20 08:31 RDW 13.4 % (11.5-15.5) 01/26/20 08:31 Plt Count 304 k/uL (150-450) 01/26/20 08:31 Neutrophils % 60 % 01/26/20 08:31 Lymphocytes % 32 % 01/26/20 08:31 Monocytes % 5 % 01/26/20 08:31 Eosinophils % 1 % 01/26/20 08:31 Basophils % 1 % 01/26/20 08:31 Neutrophils # 7.9 k/uL (1.3-7.7) H 01/26/20 08:31 Lymphocytes # 4.3 k/uL (1.0-4.8) 01/26/20 08:31 Monocytes # 0.6 k/uL (0-1.0) 01/26/20 08:31 Eosinophils # 0.1 k/uL (0-0.7) 01/26/20 08:31 Basophils # 0.1 k/uL (0-0.2) 01/26/20 08:31 Sodium 140 mmol/L (137-145) 01/26/20 08:31 Potassium 4.4 mmol/L (3.5-5.1) 01/26/20 08:31 Chloride 106 mmol/L (98-107) 01/26/20 08:31 Carbon Dioxide 26 mmol/L (22-30) 01/26/20 08:31 Anion Gap 8 mmol/L 01/26/20 08:31 BUN 12 mg/dL (7-17) 01/26/20 08:31 Creatinine 0.86 mg/dL (0.52-1.04) 01/26/20 08:31 Est GFR (CKD-EPI)AfAm >90 (>60 ml/min/1.73 sqM) 01/26/20 08:31 Est GFR (CKD-EPI)NonAf >90 (>60 ml/min/1.73 sqM) 01/26/20 08:31 Glucose 90 mg/dL (74-99) 01/26/20 08:[address] Glu mg/dL 108 01/26/20 08:31 Hemoglobin A1c 5.4 % (4.0-6.0) 01/26/20 08:31 Calcium 9.9 mg/dL (8.4-10.2) 01/26/20 08:31 Total Bilirubin 0.8 mg/dL (0.2-1.3) 01/26/20 08:31 AST 23 U/L (14-36) 01/26/20 08:31 ALT 20 U/L (4-34) 01/26/20 08:31 Alkaline Phosphatase 93 U/L (38-126) 01/26/20 08:31 Total Protein 7.5 g/dL (6.3-8.2) 01/26/20 08:31 Albumin 4.7 g/dL (3.5-5.0) 01/26/20 08:31 Triglycerides 139 mg/dL (<150) 01/26/20 08:31 Cholesterol 168 mg/dL (<200) 01/26/20 08:31 LDL Cholesterol, Calc 105 mg/dL (0-99) H 01/26/20 08:31 HDL Cholesterol 35 mg/dL (40-60) L 01/26/20 08:31 TSH 1.650 mIU/L (0.465-4.680) 01/26/20 08:31 Urine HCG, Qual Not Detected (Not Detectd) 01/24/20 16:20 Urine Opiates Screen Not Detected (NotDetected) 01/24/20 16:20 Ur Oxycodone Screen Not Detected (NotDetected) 01/24/20 16:20 Urine Methadone Screen Not Detected (NotDetected) 01/24/20 16:20 Ur Propoxyphene Screen Not Detected (NotDetected) 01/24/20 16:20 Ur Barbiturates Screen Not Detected (NotDetected) 01/24/20 16:20 U Tricyclic Antidepress Not Detected (NotDetected) 01/24/20 16:20 Ur Phencyclidine Scrn Not Detected (NotDetected) 01/24/20 16:20 Ur Amphetamines Screen Not Detected (NotDetected) 01/24/20 16:20 U Methamphetamines Scrn Not Detected (NotDetected) 01/24/20 16:20 U Benzodiazepines Scrn Detected (NotDetected) H 01/24/20 16:20 Urine Cocaine Screen Not Detected (NotDetected) 01/24/20 16:20 U Marijuana (THC) Screen Not Detected (NotDetected) 01/24/20 16:20 Vital Signs Temp 97.6 F 02/03/20 06:42 Pulse 104 H 02/03/20 08:25 Resp 20 02/03/20 08:25 BP 114/70 02/03/20 06:42 Pulse Ox 98 02/03/20 08:25 Patient Condition at Discharge: Stable Plan - Discharge Summary New Discharge Prescriptions: New Benztropine Mesylate [Cogentin] 0.5 mg PO BID 30 Days tab Paliperidone IM [Invega Sustenna] 156 mg IM ONCE #1 syr Paliperidone IM [Invega Sustenna] 156 mg IM QMONTHLY #1 syr Melatonin 10 mg PO HS 30 Days tablet Acetaminophen Tab [Tylenol] 650 mg PO Q4HR PRN tab PRN Reason: Pain/Discomfort Continue Medroxyprogesterone Acetate [Depo-Provera] 150 mg IM Q84D Cetirizine HCl [Zyrtec] 10 mg PO DAILY Discontinued LORazepam [Ativan] 1 mg PO BID ARIPiprazole IM SYRINGE [Abilify Maintena Syringe] 400 mg IM Q28D Melatonin 5 mg PO HS Discharge Medication List Cetirizine HCl [Zyrtec] 10 mg PO DAILY 01/24/20 [History] Medroxyprogesterone Acetate [Depo-Provera] 150 mg IM Q84D 01/24/20 [History] Acetaminophen Tab [Tylenol] 650 mg PO Q4HR PRN tab 02/04/20 [Rx] Benztropine Mesylate [Cogentin] 0.5 mg PO BID 30 Days tab 02/04/20 [Rx] Melatonin 10 mg PO HS 30 Days tablet 02/04/20 [Rx] Paliperidone IM [Invega Sustenna] 156 mg IM ONCE #1 syr 02/04/20 [Rx] Paliperidone IM [Invega Sustenna] 156 mg IM QMONTHLY #1 syr 02/04/20 [Rx] Follow up Appointment(s)/Referral(s): [facility] [Outside] - 02/08/20 9:30 am (9:30 on Friday the with Silvia for Care Management at the [facility] home and 10:[address] Verdugo for a medication review.) Evangelist Martinez MD [Primary Care Provider] - 1-2 days Activity/Diet/Wound Care/Special Instructions: Activity and diet as tolerated. Avoid the use of street drugs and alcohol. Take all medications as prescribed. When you are in need of refills on your medications please contact your medical provider and/or outpatient psychiatrist to have this done. Please go to scheduled outpatient appointment for aftercare treatment. If symptoms return or become worse, call the crisis line at and/or go to the nearest emergency room for evaluation. Discharge Disposition: HOME SELF-CARE
[2020-02-04 15:14] VITALS: BP 119/69; PULSE 64; RESP 16; TEMP 98.2
== END 2020-02-04 16:18 | DRG 885 ==
LOC: EEVIPCON 14:45 → EC 14:45 → 3MHU 22:50
PROVIDERS: ADMIT Psychiatry & Neurology Psychiatry; ATTEND Psychiatry & Neurology Psychiatry
DX: F20.9 Schizophrenia, unspecified (principal); R45.851 Suicidal ideations; F32.9 Major depressive disorder, single episode, unspecified; G47.00 Insomnia, unspecified; K59.00 Constipation, unspecified; Z81.8 Family history of other mental and behavioral disorders; Z91.011 Allergy to milk products; Z79.899 Other long term (current) drug therapy; Z56.0 Unemployment, unspecified
CPT/HCPCS: 80053; 80061; 80306; 81025; 82075; 83036; 84443; 85025; 99285